=== PATIENT | female | born 1955 | race Caucasian/White ===

== ENCOUNTER 2018-10-30 21:25 | Emergency (ER) | payer OTHER ==
[2018-10-30] MEDS ORDERED: Aspirin Chewable 81 MG TAB ONE (21:43)
[2018-10-30] MEDS ORDERED: Metoprolol Tartrate 5 MG/5 ML VIAL ONE (21:43)
[2018-10-30] MEDS ORDERED: Pantoprazole 40 MG VIAL ONE (21:47)
[2018-10-30 22:04] LABS: #Basophils 0.1 thou/uL (0.0-0.2); #Lymphocytes 3.7 thou/uL (1.20-3.40); #Monocytes 0.9 thou/uL (0.11-0.59); #Neutrophils 8.5 thou/uL (1.40-6.50); %Basophils 0.6 % (0.0-1.0); %Eosinophils 0.4 % (0.0-10.0); %Lymphocytes 28.1 % (21.0-51.0); %Monocytes 6.7 % (0.0-10.0); %Neutrophils 64.3 % (42.0-75.0); Hemoglobin 11.1 g/dL (12.0-16.0); Mean Corpuscular Hemoglobin 29.7 pg (27.0-31.0); Mean Corpuscular Volume 87.3 fL (78.0-98.0); Mean Platelet Volume 5.6 fL (7.4-10.4); Platelet Count 267 thou/uL (130-400); RBC Distribution Width 13.2 % (11.5-14.5); Red Blood Cell (RBC) Count 3.76 mill/uL (4.20-5.40); White Blood Cell (WBC) Count 13.2 thou/uL (4.8-10.8)
[2018-10-30] MEDS ORDERED: Mag-Al Plus 1200 MG/1200 MG/120 MG/30 ML UDCUP ONE (22:06)
[2018-10-30] MEDS ORDERED: Lidocaine Viscous Sol 2% 15 ml UD Cup ONE (22:06)
[2018-10-30 22:17] LABS: ALT (SGPT) 13 U/L (8-55); AST (SGOT) 13 U/L (5-34); Alkaline Phosphatase 68 U/L (40-150); Anion Gap 13 mmol/L (10-20); BUN (Urea Nitrogen) 19 mg/dL (9.8-20.1); Bilirubin, Total 0.3 mg/dL (0.2-1.2); Calc. Creatinine Clearance 0 mL/min (70-130); Calcium 9.5 mg/dL (7.8-10.44); Carbon Dioxide 26 mmol/L (23-31); Chloride 107 mmol/L (98-107); Estimated GFR-MDRD 44; Glucose 104 mg/dL (80-115); Potassium 4.1 mmol/L (3.5-5.1); Sodium 142 mmol/L (136-145)
[2018-10-30] MEDS ORDERED: Nitroglycerin 50 MG/250 ML BOT 250 ML ONE (22:26)
[2018-10-30] MEDS ORDERED: Lorazepam 2 MG/ML VIAL ONE (22:26)
[2018-10-30] MEDS ORDERED: Enoxaparin Sodium 100 MG/ML SYRINGE ONE (22:36)
--- NOTE | 2018-10-30 23:12 | RAD ---
PORTABLE CHEST: 10/30/18 An AP portable film at 2120 shows a normal sized heart and clear lungs. No infiltrate, effusion, or p neumo thorax was seen. The mediastinum appears normal and the trachea is midline. The bony structures showed no acute findings. IMPRESSION: No acute thoracic finding. POS: HOME
== END 2018-10-30 23:04 | disposition short-term general hospital (02) ==
LOC: BURERS 21:25
DX: I24.9 Acute ischemic heart disease, unspecified (principal); I10 Essential (primary) hypertension; K21.9 Gastro-esophageal reflux disease without esophagitis; F41.9 Anxiety disorder, unspecified; F31.9 Bipolar disorder, unspecified; Z79.899 Other long term (current) drug therapy
CPT/HCPCS: 36415; 71045; 80053; 83605; 84484; 85025; 85379; 93005; 94760; 96365; 96372; 96375; C9113; J1650; J2060